=== PATIENT | female | born 1930 | race Caucasian/White ===

== ENCOUNTER 2017-05-30 11:26 | Emergency (ER) | payer MEDICARE, OTHER ==
[~2017-05-30] VITALS: Ht 157.5 cm; Wt 63.0 kg
[~2017-05-30 11:26] MED LIST: ACET-2605 PO; AMLO5TAB4 PO; ESCI10TA PO; IBUP-1096 PO; LOPE2CAP40 PO; LOSA25TA13 PO; MAG30ORA PO; MAGN400O6 PO; METF500T4 PO; PEPTO-BISMOL PO; RISP1TAB27 PO; SITA50TA PO
[2017-05-30] MEDS ORDERED: POLY119P2 PO (11:47)
[2017-05-30] MEDS ORDERED: RISP0.5T20 PO (11:47)
[2017-05-30] MEDS ORDERED: ACET-53 PO (11:47)
[2017-05-30] MEDS ORDERED: MELO-105 PO (11:47)
[2017-05-30] MEDS ORDERED: DEXT118L43 PO (11:47)
[2017-05-30] MEDS ORDERED: BISM262O28 PO (11:47)
[2017-05-30] MEDS ORDERED: NEOM15OI3 TP (11:47)
[2017-05-30] MEDS ORDERED: ASPI81TA31 PO (11:47)
[2017-05-30] MEDS ORDERED: LOSA50TA21 PO (11:48)
--- NOTE | 2017-05-30 12:20 | NUR ---
PT WAS EVALUATED BY DR BAZZI. PT IS IN ROOM #2A.
[2017-05-30 12:39] LABS: BASOPHILS # (AUTO) 0.1 K/uL (0.0-8.0); BASOPHILS % (AUTO) 0.8 % (0.0-2.0); EOSINOPHILS # (AUTO) 0.2 K/uL (0.0-0.7); EOSINOPHILS % (AUTO) 2.3 % (0.0-7.0); HEMATOCRIT 41.6 % (37-47); HEMOGLOBIN 13.9 G/DL (12.0-16.0); LYMPHOCYTES # (AUTO) 2.1 K/UL (0.8-4.8); MEAN CORPUSCULAR HEMOGLOBIN 30.4 UUG (27.0-31.0); MEAN CORPUSCULAR HGB CONC 33 g/dL (32.0-37.0); MEAN CORPUSCULAR VOLUME 91.1 FL (81.0-99.0); MONOCYTES # (AUTO) 0.6 K/UL (0.1-1.30); MONOCYTES % (AUTO) 7.2 % (0.0-11.0); NEUTROPHILS # (AUTO) 5.1 K/UL (1.8-8.9); NEUTROPHILS % (AUTO) 63.7 % (38.5-71.5); PLATELET COUNT (AUTO) 180 K/UL (150-450); RED BLOOD CELL COUNT(AUTO) 4.56 MIL/UL (4.2-5.4); WHITE BLOOD COUNT (AUTO) 8.1 K/UL (4.0-11.2)
[2017-05-30 12:44] LABS: CARBON DIOXIDE 31 mmol/L (21-32); CHLORIDE 105 mmol/L (98-107); CREATININE 0.7 mg/dL (0.6-1.3); GLUCOSE 123 mg/dL (74-106); UREA NITROGEN, BLOOD 13 mg/dL (7-18)
[2017-05-30 12:55] LABS: ALANINE AMINOTRANSFERASE 19 U/L (14-59); ALKALINE PHOSPHATASE 62 U/L (50-136); ASPARTATE AMINOTRANSFERASE 29 U/L (15-37); BILIRUBIN,DIRECT 0.2 mg/dL (0.0-0.2); BILIRUBIN,TOTAL 0.6 mg/dL (0.2-1.0); TOTAL PROTEIN, SERUM 7.3 g/dL (6.4-8.2)
[2017-05-30 13:12] LABS: *BILIRUBIN,URIN NEGATIVE (NEGATIVE); *BLOOD, URINE NEGATIVE (NEGATIVE); *CLARITY,URINE CLEAR (CLEAR); *COLOR,URINE YELLOW (YELLOW); *KETONES,URINE NEGATIVE (NEGATIVE); *PROTEIN,URINE NEGATIVE (NEGATIVE); LEUKOCYTE ESTERASE ,URINE TRACE (NEGATIVE); NITRITE, URINE NEGATIVE (NEGATIVE); PH,URINE 8.5 (5.0-8.0); UGLUCOSE NEGATIVE (NEGATIVE)
--- NOTE | 2017-05-30 13:25 | NUR ---
PT WAS D/C TO HOME. D/C INSTRUCTIONS GIVEN TO THE PT AND TO HER CUBAHTER. NO S/S OF DISTRESS AT THIS TIME.
[2017-05-30 13:26] VITALS: BP 142/92
[2017-05-30 13:30] LABS: BACTERIA,URINE FEW /HPF (NONE SEEN); RBC,URINE 0-3 /HPF (0-3); SQUAMOUS EPITHELIAL CELL,UR FEW /HPF (NONE SEEN)
== END 2017-05-30 13:29 | disposition home or self-care (01) ==
LOC: ER 11:26
DX: I10 Essential (primary) hypertension (principal); Z79.82 Long term (current) use of aspirin; E11.9 Type 2 diabetes mellitus without complications; E78.00 Pure hypercholesterolemia, unspecified
CPT/HCPCS: 36415; 70030-TC; 70450; 71010; 84443; 85025; 85730; 87040; 87086; 93005; A4663

== ENCOUNTER 2017-06-10 17:55 | Emergency (ER) | payer MEDICARE, OTHER ==
[~2017-06-10] VITALS: Ht 154.9 cm; Wt 64.4 kg
[~2017-06-10 17:55] MED LIST changes: +ACET-53 PO; -AMLO5TAB4 PO; +ASPI81TA31 PO; +BISM262O28 PO; +DEXT118L43 PO; -IBUP-1096 PO; -LOSA25TA13 PO; +LOSA50TA21 PO; +MELO-105 PO; -METF500T4 PO; +NEOM15OI3 TP; +POLY119P2 PO; +RISP0.5T20 PO; -RISP1TAB27 PO
--- NOTE | 2017-06-10 18:46 | NUR ---
PT IS IN ROOM #1A. DR RUBIN EVALUATED THE PT.
[2017-06-10 19:34] LABS: BASOPHILS # (AUTO) 0.1 K/uL (0.0-8.0); BASOPHILS % (AUTO) 0.9 % (0.0-2.0); EOSINOPHILS # (AUTO) 0.1 K/uL (0.0-0.7); EOSINOPHILS % (AUTO) 1.5 % (0.0-7.0); HEMATOCRIT 39.4 % (37-47); HEMOGLOBIN 13.1 G/DL (12.0-16.0); LYMPHOCYTES # (AUTO) 2.2 K/UL (0.8-4.8); LYMPHOCYTES % (AUTO) 25.7 % (20.5-51.5); MEAN CORPUSCULAR HEMOGLOBIN 30.6 UUG (27.0-31.0); MEAN CORPUSCULAR HGB CONC 33 g/dL (32.0-37.0); MEAN CORPUSCULAR VOLUME 91.6 FL (81.0-99.0); MONOCYTES # (AUTO) 0.8 K/UL (0.1-1.30); MONOCYTES % (AUTO) 9.7 % (0.0-11.0); NEUTROPHILS # (AUTO) 5.5 K/UL (1.8-8.9); NEUTROPHILS % (AUTO) 62.2 % (38.5-71.5); PLATELET COUNT (AUTO) 172 K/UL (150-450); WHITE BLOOD COUNT (AUTO) 8.7 K/UL (4.0-11.2)
[2017-06-10 19:49] LABS: CARBON DIOXIDE 29 mmol/L (21-32); CHLORIDE 105 mmol/L (98-107); CREATININE 0.8 mg/dL (0.6-1.3); GLUCOSE 81 mg/dL (74-106); POTASSIUM 4.5 mmol/L (3.5-5.1); UREA NITROGEN, BLOOD 20 mg/dL (7-18)
--- NOTE | 2017-06-10 19:49 | NUR ---
VERBAL ORDER RECEIVED FROM NESS ROBERTS TO STRAIGHT CATH TO COLLECT URINE, PATIENT TOLERATED PROCEDURE WELL.
[2017-06-10 20:02] LABS: ALANINE AMINOTRANSFERASE 19 U/L (14-59); ALKALINE PHOSPHATASE 46 U/L (50-136); ASPARTATE AMINOTRANSFERASE 28 U/L (15-37); BILIRUBIN,DIRECT 0.1 mg/dL (0.0-0.2); BILIRUBIN,TOTAL 0.6 mg/dL (0.2-1.0); LIPASE 213 U/L (73-393); TOTAL PROTEIN, SERUM 6.7 g/dL (6.4-8.2)
[2017-06-10 20:39] LABS: *BILIRUBIN,URIN NEGATIVE (NEGATIVE); *BLOOD, URINE NEGATIVE (NEGATIVE); *CLARITY,URINE CLEAR (CLEAR); *COLOR,URINE YELLOW (YELLOW); *KETONES,URINE NEGATIVE (NEGATIVE); *PROTEIN,URINE NEGATIVE (NEGATIVE); LEUKOCYTE ESTERASE ,URINE TRACE (NEGATIVE); NITRITE, URINE NEGATIVE (NEGATIVE); UGLUCOSE NEGATIVE (NEGATIVE)
[2017-06-10 20:50] LABS: BACTERIA,URINE NONE SEEN /HPF (NONE SEEN); RBC,URINE 0-3 /HPF (0-3); SQUAMOUS EPITHELIAL CELL,UR FEW /HPF (NONE SEEN); WBC,URINE 0-3 /HPF (0-3)
[2017-06-10 21:40] VITALS: BP 143/75
--- NOTE | 2017-06-10 21:41 | NUR ---
Patient discharged to home in stable conditon. Written and verbal after care instructions given. Patient verbalizes understanding of instructions.
== END 2017-06-10 21:41 | disposition home or self-care (01) ==
LOC: ER 17:55
DX: R06.02 Shortness of breath (principal); R79.89 Other specified abnormal findings of blood chemistry; I10 Essential (primary) hypertension; E78.00 Pure hypercholesterolemia, unspecified; E11.9 Type 2 diabetes mellitus without complications; F32.9 Major depressive disorder, single episode, unspecified; R41.82 Altered mental status, unspecified; I70.0 Atherosclerosis of aorta; Z79.82 Long term (current) use of aspirin
CPT/HCPCS: 36415; 70450; 71010; 80048; 80076; 81001; 83605; 83690; 83880; 84484; 85025; 87040 ×2; 87086; 93005; 99285; A4663; C1758; 70030-TC

== ENCOUNTER 2017-11-10 18:51 | Inpatient (IN) | payer MEDICARE, OTHER ==
[~2017-11-10] VITALS: Ht 162.6 cm; Wt 67.6 kg
[2017-11-10] MEDS ORDERED: VANCOMYCIN IV 1,000 MG in IV DEXTROSE 5% 250 ML IV ONE (20:30)
[2017-11-10] MEDS ORDERED: PIPERACILLIN SODIUM/TAZOBACTAM 3.375 G in IV DEXTROSE 5% 50 ML IV ONE (20:30)
[2017-11-10] MEDS ORDERED: IV NORMAL SALINE 1000 ML BAG IV ONE ×2 (20:30→23:30)
[2017-11-10 21:11] LABS: BASOPHILS % (AUTO) 0.2 % (0.0-2.0); HEMATOCRIT 40.1 % (31.2-41.9); HEMOGLOBIN 13.6 g/dL (10.9-14.3); LYMPHOCYTES # (AUTO) 1.2 K/uL (20.0-40.0); LYMPHOCYTES % (AUTO) 12.3 % (20.5-51.5); MEAN CORPUSCULAR HEMOGLOBIN 30.5 uug (24.7-32.8); MEAN CORPUSCULAR HGB CONC 34 g/dL (32.3-35.6); MEAN CORPUSCULAR VOLUME 89.7 fL (75.5-95.3); MONOCYTES % (AUTO) 10.4 % (0.0-11.0); NEUTROPHILS # (AUTO) 7.8 K/uL (1.8-8.9); NEUTROPHILS % (AUTO) 77.1 % (38.5-71.5); PLATELET COUNT (AUTO) 119 K/uL (179-408); RED BLOOD CELL COUNT(AUTO) 4.47 MIL/uL (3.63-4.92); WHITE BLOOD COUNT (AUTO) 10.1 K/uL (3.8-11.8)
[2017-11-10 21:25] LABS: CARBON DIOXIDE 24 mmol/L (21-32); CHLORIDE 104 mmol/L (98-107); CREATININE 1.2 mg/dL (0.6-1.3); GLUCOSE 174 mg/dL (74-106); POTASSIUM 3.8 mmol/L (3.5-5.1); UREA NITROGEN, BLOOD 17 mg/dL (7-18)
[2017-11-10] MEDS ORDERED: PIPERACILLIN/TAZOBACTAM/D5W 50 ML IV ONE (21:26)
[2017-11-10 21:38] LABS: ALANINE AMINOTRANSFERASE 35 U/L (14-59); ALKALINE PHOSPHATASE 45 U/L (50-136); ASPARTATE AMINOTRANSFERASE 125 U/L (15-37); BILIRUBIN,DIRECT 0.1 mg/dL (0.0-0.2); BILIRUBIN,TOTAL 0.4 mg/dL (0.2-1.0); TOTAL PROTEIN, SERUM 6.4 g/dL (6.4-8.2)
[2017-11-10] MEDS ORDERED: ASPIRIN 325 MG TABLET PO ONE (21:45)
[2017-11-10] MEDS ORDERED: VANCOMYCIN IV 200 ML ONE (21:52)
[2017-11-10] MEDS ORDERED: MAG-106 PO (22:31)
[2017-11-10] MEDS ORDERED: RISP1TAB27 PO (22:31)
[2017-11-10] MEDS ORDERED: AMOX1TAB49 PO (22:31)
[2017-11-10] MEDS ORDERED: [UNRECOGNIZED DRUG - CODE] PO (22:31)
[2017-11-10] MEDS ORDERED: LOPE2TAB57 PO (22:31)
[2017-11-10] MEDS ORDERED: LOSA100T15 PO (22:31)
[2017-11-10] MEDS ORDERED: CLON0.3P TD (22:31)
[2017-11-10] MEDS ORDERED: LIDO30AD10 TD (22:31)
--- NOTE | 2017-11-10 22:35 | NUR ---
pt in bed, returned from CT with no acute distress. family at bedside.
[2017-11-10] MEDS ORDERED: ASPIRIN 325 MG TABLET ONE (22:53)
--- NOTE | 2017-11-10 23:42 | NUR ---
pATIENT IN BED, NO ACUTE DISTRESS NOTED. ALL PATIENT NEEDS ATTENDED AND MET. CALL LIGHT IS WITHIN REACH
[2017-11-11] VITALS (13 sets, daily range): BP systolic 88–156; BP diastolic 54–76
[2017-11-11] MEDS ORDERED: OSELTAMIVIR PHOSPHATE 75 MG CAPSULE PO ONE (00:15)
--- NOTE | 2017-11-11 00:22 | NUR ---
pt w/c to bathroom with daughter and returned to bed. no acute distress.
--- NOTE | 2017-11-11 00:25 | NUR ---
[facility] paged per MASHA SMITH instructions.
--- NOTE | 2017-11-11 01:05 | NUR ---
2nd call placed to [facility] for call back.
[2017-11-11] MEDS ORDERED: OSELTAMIVIR PHOSPHATE 75 MG CAPSULE ONE (01:13)
--- NOTE | 2017-11-11 01:30 | NUR ---
called CCU and report given to Ibis HANNA
--- NOTE | 2017-11-11 02:20 | NUR ---
ADMITTED FROM ER VIA GURNEY, VERBALLY RESPONSIVE & FOLLOWS TO COMMAND. HEP LOCK INTACT & PATENT ON L WRIST. BP STABLE, AFEBRILE. ON RM AIR W/ O2 SAT OF 98%. NOT IN ANY DISTRESS.
[2017-11-11] MEDS ORDERED: ESCITALOPRAM OXALATE 10 MG TABLET PO SCH ×2 (03:00→18:00)
[2017-11-11] MEDS ORDERED: risperiDONE 1 MG TABLET PO SCH (03:00)
[2017-11-11] MEDS ORDERED: risperiDONE 0.25 MG TABLET ONE (03:20)
[2017-11-11] MEDS ORDERED: ESCITALOPRAM OXALATE 10 MG TABLET ONE (03:23)
[2017-11-11 05:43] LABS: BASOPHILS % (AUTO) 0.3 % (0.0-2.0); EOSINOPHILS % (AUTO) 0.1 % (0.0-7.0); HEMATOCRIT 38.6 % (31.2-41.9); LYMPHOCYTES # (AUTO) 1.2 K/uL (20.0-40.0); LYMPHOCYTES % (AUTO) 16.9 % (20.5-51.5); MEAN CORPUSCULAR HEMOGLOBIN 30.1 uug (24.7-32.8); MEAN CORPUSCULAR HGB CONC 34 g/dL (32.3-35.6); MEAN CORPUSCULAR VOLUME 89.8 fL (75.5-95.3); MONOCYTES # (AUTO) 0.9 K/uL (2.0-10.0); MONOCYTES % (AUTO) 11.6 % (0.0-11.0); NEUTROPHILS # (AUTO) 5.2 K/uL (1.8-8.9); NEUTROPHILS % (AUTO) 71.1 % (38.5-71.5); PLATELET COUNT (AUTO) 109 K/uL (179-408); WHITE BLOOD COUNT (AUTO) 7.3 K/uL (3.8-11.8)
[2017-11-11 05:54] LABS: CARBON DIOXIDE 23 mmol/L (21-32); CHLORIDE 109 mmol/L (98-107); CREATININE 0.8 mg/dL (0.6-1.3); GLUCOSE 132 mg/dL (74-106); MAGNESIUM 2.1 mg/dL (1.8-2.4); PHOSPHOROUS 3.2 mg/dL (2.5-4.9); POTASSIUM 3.3 mmol/L (3.5-5.1); UREA NITROGEN, BLOOD 16 mg/dL (7-18)
--- NOTE | 2017-11-11 06:00 | NUR ---
SLEPT WELL. AFEBRILE. NOT IN ANY DISTRESS.
[2017-11-11] MEDS: PIPERACILLIN/TAZOBACTAM/D5W 3.375 G in PREMIXED 1 EACH IV SCH ×3 (06:02→21:25)
[2017-11-11] MEDS ORDERED: PIPERACILLIN/TAZOBACTAM/D5W 50 ML IV ONE (06:09)
--- NOTE | 2017-11-11 13:20 | NUR ---
Dr. Hanna in the unit to examine patient; full report given. Orders to down grade patient to telemetry received. also informed per pharmacy on the phone at this moment to reconcile pt's medications.
[2017-11-11] MEDS ORDERED: MAGNESIUM HYDROXIDE 30 ML LIQUID UDC PO PRN (13:45)
[2017-11-11] MEDS ORDERED: ACETAMINOPHEN ES 500 MG TABLET PO PRN (13:45)
[2017-11-11] MEDS: NEOMY/BACITRAC/POLYMI OINT 28.35 GM TUBE TP SCH (13:45)
[2017-11-11] MEDS ORDERED: ENOXAPARIN SODIUM 100 MG/ML DISP.SYRIN SQ SCH (13:45)
[2017-11-11] MEDS ORDERED: BISMUTH SUBSALICYLATE 262 MG/15 ML UDC PO PRN (13:45)
[2017-11-11] MEDS ORDERED: MAG HYDROX/AL HYDROX/SIMETH 30 ML LIQUID UDC PO PRN (13:45)
[2017-11-11] MEDS ORDERED: POLYETHYLENE GLYCOL 3350 238 GM POWDER PO SCH (13:45)
[2017-11-11] MEDS: ENOXAPARIN SODIUM 60 MG/0.6 ML DISP.SYRIN SQ SCH (15:15)
--- NOTE | 2017-11-11 15:30 | NUR ---
Telephone report given to raul Patrick.
[2017-11-11] MEDS ORDERED: POTASSIUM CHLORIDE 20 MEQ TAB.PRT.SR PO ONE (15:45)
--- NOTE | 2017-11-11 15:58 | NUR ---
At this time during transfer of pt. to room 208 Dr. Parnell in the unit to examine patient. updated pt's daughter of her current condition.
[2017-11-11] MEDS: AZITHROMYCIN IV 500 MG in IV DEXTROSE 5% 250 ML IV SCH (16:00)
--- NOTE | 2017-11-11 16:00 | NUR ---
At this time patient transfer to room 208 via bed, vitals stable.
--- NOTE | 2017-11-11 16:05 | NUR ---
RECEIVED PATIENT FROM CCU 86 YEARS OLD FEMALE BY BED TO ROOM 228 WITH DX OF SEPSIS AND HYPOTENSION PATIENT IS ALERT OBEYS COMMAND SEEMS COMFORTABLE ON ROOM AIR WITH NO SHORTNESS OF BREATH BUT BREATH SOUNDS WITH RHONCHI WITH SOME COUGHING EPISODES NOTED.MULTIPLE ABRASION AND BRUISES NOTED FROM PREVIOUS FALLS PATIENT IS ON RESPIRATORY ISOLATION AND PRECAUTION DUE TO POSITIVE INFLUENZA B.TELEMETRY IS SR-SB AT TIMES WITH NO ECTOPY HEPLOCK LEFT WRIST PATENT MADE COMFORTABLE AND WILL CONTINUE TO OBSERVE.
[2017-11-11] MEDS: CARVEDILOL 3.125 MG TABLET PO SCH (17:12)
[2017-11-11] MEDS: risperiDONE 1 MG TABLET PO SCH (17:57)
[2017-11-11] MEDS: ESCITALOPRAM OXALATE 10 MG TABLET PO SCH (17:57)
--- NOTE | 2017-11-11 18:00 | NUR ---
POTASSIUM LEVEL IS 3.3 ORDER TO GIVE POTASSIUM RECEIVED AND GIVEN.REMAIN ON IV ANTIBIOTICS ORDERED WITH NO ADVERSE OR ALLERGIC REACTIONS AT THIS TIME.PATIENTS DAUGHTER BROUGHT HER SOME SOUP AND ESTONIAN NOODLES AND SHE TOLERATED WELL.WILL CONTINUE TO OBSERVE.
[2017-11-11] MEDS: ATORVASTATIN 20 MG TABLET PO SCH (21:25)
[2017-11-11] MEDS: ACETAMINOPHEN ES 500 MG TABLET PO PRN (21:31)
[2017-11-12 00:18] VITALS: BP 125/77
[2017-11-12] MEDS: ENOXAPARIN SODIUM 60 MG/0.6 ML DISP.SYRIN SQ SCH ×2 (01:40→13:06)
[2017-11-12] MEDS ORDERED: ENOXAPARIN SODIUM 80 MG/0.8 ML DISP.SYRIN SQ ONE (01:56)
--- NOTE | 2017-11-12 02:00 | NUR ---
NOTE TO PHARMACY: TOOK LOVENOX 80 mg; FOR, PYXIS OUT OF LOVENOX 60 MG DOSE. CHARTED ELSEWHERE IN eMar.
[2017-11-12 04:00] VITALS: BP 153/78
[2017-11-12] MEDS: PIPERACILLIN/TAZOBACTAM/D5W 3.375 G in PREMIXED 1 EACH IV SCH ×3 (05:42→22:51)
[2017-11-12 06:16] LABS: BASOPHILS % (AUTO) 0.5 % (0.0-2.0); EOSINOPHILS % (AUTO) 0.6 % (0.0-7.0); HEMATOCRIT 37.3 % (31.2-41.9); HEMOGLOBIN 12.7 g/dL (10.9-14.3); LYMPHOCYTES # (AUTO) 1.6 K/uL (20.0-40.0); LYMPHOCYTES % (AUTO) 29.4 % (20.5-51.5); MEAN CORPUSCULAR HEMOGLOBIN 30.4 uug (24.7-32.8); MEAN CORPUSCULAR HGB CONC 34 g/dL (32.3-35.6); MEAN CORPUSCULAR VOLUME 89.2 fL (75.5-95.3); MONOCYTES # (AUTO) 0.7 K/uL (2.0-10.0); MONOCYTES % (AUTO) 11.9 % (0.0-11.0); NEUTROPHILS # (AUTO) 3.2 K/uL (1.8-8.9); NEUTROPHILS % (AUTO) 57.6 % (38.5-71.5); PLATELET COUNT (AUTO) 113 K/uL (179-408); RED BLOOD CELL COUNT(AUTO) 4.18 MIL/uL (3.63-4.92); WHITE BLOOD COUNT (AUTO) 5.6 K/uL (3.8-11.8)
[2017-11-12 06:29] LABS: ALANINE AMINOTRANSFERASE 29 U/L (14-59); ALKALINE PHOSPHATASE 33 U/L (50-136); ASPARTATE AMINOTRANSFERASE 90 U/L (15-37); BILIRUBIN,TOTAL 0.6 mg/dL (0.2-1.0); CARBON DIOXIDE 25 mmol/L (21-32); CHLORIDE 109 mmol/L (98-107); CREATININE 0.8 mg/dL (0.6-1.3); GLUCOSE 130 mg/dL (74-106); MAGNESIUM 2.1 mg/dL (1.8-2.4); PHOSPHOROUS 3.2 mg/dL (2.5-4.9); POTASSIUM 3.4 mmol/L (3.5-5.1); TOTAL PROTEIN, SERUM 5.6 g/dL (6.4-8.2); UREA NITROGEN, BLOOD 13 mg/dL (7-18)
--- NOTE | 2017-11-12 07:59 | NUR ---
PATIENT IS IN BED AWAKE ALERT WITH CONFUSSION AND DISORIENTATION TOTALLY DEPENDENT FOR ALL ADL TURNED AND REPOSITIONED Q2H REMAIN ON ROOM AIR WITH NO SHORTNESS OF BREATH AT THIS TIME.REMAIN ON DROPLET ISOLATION AND PRECAUTION ORDERED OCCASSIONAL COUGH EPISODES NOTED MADE COMFORTABLE.
[2017-11-12] MEDS: CARVEDILOL 3.125 MG TABLET PO SCH ×2 (08:53→17:47)
[2017-11-12] MEDS: ASPIRIN 81 MG TAB.CHEW PO SCH (08:53)
[2017-11-12] MEDS: LIDOCAINE 5% PATCH TD SCH (08:53)
[2017-11-12] MEDS: LINAGLIPTIN 5 MG TABLET PO SCH (08:53)
[2017-11-12] MEDS ORDERED: OSELTAMIVIR PHOSPHATE 75 MG CAPSULE PO SCH (09:00)
[2017-11-12] MEDS ORDERED: SITAGLIPTIN PHOSPHATE 50 MG TABLET PO SCH (09:00)
[2017-11-12] MEDS: NEOMY/BACITRAC/POLYMI OINT 28.35 GM TUBE TP SCH (09:20)
[2017-11-12] MEDS ORDERED: ONDANSETRON 4 MG/2 ML VIAL IV PRN (09:30)
--- NOTE | 2017-11-12 09:42 | NUR ---
DR RIBEIRO HERE TO SEE PATIENT WITH NEW ORDERS AND NOTED
[2017-11-12] MEDS: POTASSIUM CHLORIDE 10 MEQ in IV 1/2NS 1000 ML 1,000 ML IV PRN (09:44)
--- NOTE | 2017-11-12 09:58 | NUR ---
SEEN BY THE PHYSICAL THERPIST AND PATIENT AMBULATED TO THE BATHROOM AND VOIDED AND BACK TO BED HER DAUGHTER IS AT THE BEDSIDE AT THIS TIME.
[2017-11-12] MEDS ORDERED: VANCOMYCIN IV 1 G in PREMIXED 0 EACH IV ONE (10:30)
[2017-11-12 11:20] VITALS: BP 142/72
[2017-11-12] MEDS: OSELTAMIVIR PHOSPHATE 75 MG CAPSULE PO SCH ×2 (11:30→20:04)
--- NOTE | 2017-11-12 13:36 | NUR ---
PATIENT ASSISTED INTO THE BATHROOM AMBULATED HAND HELD AND VOIDED ADEQUATE AMOUNT AND BACK TO BED.IV SITE INFILTERATED REINSERTED TO HER LEFT FOREARM WITH GAUGE 20 ANGIO
[2017-11-12 15:07] VITALS: BP 141/69
[2017-11-12] MEDS: AZITHROMYCIN IV 500 MG in IV DEXTROSE 5% 250 ML IV SCH (15:32)
--- NOTE | 2017-11-12 16:53 | NUR ---
Clinical pharmacy note-Vancomycin dosing per pharmacy S: To start Vancomycin dosing on this patient for sepsis with shock. O: BUN 12 Scr 0.8 WBC 5.6 Temp 98.5 A/P: Patient had 1 gram today at 1129. Will continue Vancomycin 1gram every 22 hrs (second dose tomorrow at 0900) and draw trough by 4th dose(not ordered yet) for expected trough around 15. Will monitor daily.
[2017-11-12] MEDS: ESCITALOPRAM OXALATE 10 MG TABLET PO SCH (17:46)
[2017-11-12] MEDS: risperiDONE 1 MG TABLET PO SCH (17:46)
[2017-11-12] MEDS ORDERED: BISMUTH SUBSALICYLATE 262 MG/15 ML UDC PO PRN (18:00)
--- NOTE | 2017-11-12 18:00 | NUR ---
PATIENT REMAINS ON ANTIBIOTICS ORDERED WITH NO ADVERSE OR ALLERGIC REACTIONS AT THIS TIME MADE COMFORTABLE AND WILL CONTINUE TO OBSERVE.
--- NOTE | 2017-11-12 18:50 | NUR ---
ORDER FROM DR ESCOBAR FOR SPUTUM RECEIVED AND NOTED SPECIMEN CUP PROVIDED TO THE PATIENT AND HER DAUGHTER AND PATIENTS DAUGHTER WAS EDUCATED TTHAT PATIENT SHOULD DEEP COUGH INTO THE SPECIMEN CUP AND SHE EXPRESSED UNDERSTANDING.RESPIRATORY THERAPY WAS NOTIFIED OF ORDER TO INDUCE SPUTUM IF PATIENT IS UNABLE TO PROVIDE SPECIMEN.
[2017-11-12 20:00] VITALS: BP 179/50
[2017-11-12] MEDS: ATORVASTATIN 20 MG TABLET PO SCH (20:03)
[2017-11-12] MEDS: ACETAMINOPHEN ES 500 MG TABLET PO PRN (20:04)
--- NOTE | 2017-11-12 20:30 | NUR ---
Patient in bed awake & alert w/ daughter at bedside. Tele shows sinus rhtyhm sinus cem. Coughing on & off non productively. Instructed patient to collect sputum sample for sputum test. Complaining of lower back discomfort. Noted elevated BP. Tylenol 1000 mg po given for pain & monitored.
[2017-11-12 23:00] VITALS: BP 145/81
--- NOTE | 2017-11-12 23:45 | NUR ---
Assisted to the bathroom, patient voided. Denies pain at this time, re-checked BP itsa 145/81. Sinus cem on the monitor.
--- NOTE | 2017-11-13 | NUR ---
Sputum not available yet. RT attempted to do deep suction but patient refused.
[2017-11-13 00:31] VITALS: BP 167/68
[2017-11-13] MEDS: ENOXAPARIN SODIUM 60 MG/0.6 ML DISP.SYRIN SQ SCH ×2 (02:05→13:04)
[2017-11-13 04:00] VITALS: BP 188/78
[2017-11-13] MEDS: POTASSIUM CHLORIDE 10 MEQ in IV 1/2NS 1000 ML 1,000 ML IV PRN (05:33)
[2017-11-13] MEDS: PIPERACILLIN/TAZOBACTAM/D5W 3.375 G in PREMIXED 1 EACH IV SCH ×3 (05:33→21:08)
[2017-11-13] MEDS: CARVEDILOL 3.125 MG TABLET PO SCH ×2 (05:49→17:22)
--- NOTE | 2017-11-13 06:44 | NUR ---
BP elevated today, early dose of morning Coreg p.o given. Kept comfortable. No acute resp. distress, sinus cem on the monitor.
--- NOTE | 2017-11-13 07:30 | NUR ---
RECEIVED IN BED ASLEEP BUT AROUSES EASILY ON ROOM AIR WITH NO SHORTNESS OF BREATH REMAIN ON IVF ORDERED WITH NO S/S OF INFILTERATION ON SITE.ON DROPLET ISOLATION AND PRECAUTION FOR POSITIVE INFLUENZA SOME COUGH NOTED BUT UNABLE TO EXPECTORATE PER THE NOC RN PATIENT REFUSED TO BR INDUCED FOR THE SPUTUM.WILL CONTINUE TO OBSERVE AND PROVIDE SAFE AND THERAPEUTIC ENVIRONMENT AT ALL TIMES.
[2017-11-13] MEDS: LIDOCAINE 5% PATCH TD SCH (08:39)
[2017-11-13] MEDS: ASPIRIN 81 MG TAB.CHEW PO SCH (08:39)
[2017-11-13] MEDS: LINAGLIPTIN 5 MG TABLET PO SCH (08:39)
[2017-11-13] MEDS: NEOMY/BACITRAC/POLYMI OINT 28.35 GM TUBE TP SCH (08:40)
[2017-11-13] MEDS: OSELTAMIVIR PHOSPHATE 75 MG CAPSULE PO SCH ×2 (08:49→21:08)
[2017-11-13] MEDS: VANCOMYCIN IV 1 G in PREMIXED 0 EACH IV SCH (09:18)
--- NOTE | 2017-11-13 10:30 | NUR ---
ALERT WITH DISORIENTATION REQUIRES REALITY ORIENTATION AND REDIRECTION.REMAIN ON IV ANTIBIOTICS ORDERED WITH NO ADVERSE OR ALLERGIC REACTIONS AT THIS TIME.REMAIN ON DROPLET ISOLATION AND PRECAUTION ORDERED COUGHS AT TIMES DRY UNABLE TO BRING UP PHLEGM.
[2017-11-13 11:25] VITALS: BP 184/69
[2017-11-13] MEDS ORDERED: OSELTAMIVIR PHOSPHATE 75 MG CAPSULE PO SCH (12:00)
--- NOTE | 2017-11-13 13:10 | NUR ---
Clinical pharmacy note-Vancomycin dosing per pharmacy S: To continue Vancomycin dosing on this patient for sepsis with shock. O: BUN 13 (11/12) Scr 0.8 (11/12) WBC 5.6 (11/12) Temp 98.2 A/P: Will continue same dose of Vancomycin 1gram ivpb every 22 hrs. Third dose is due tomorrow at 0700. Plan to draw trough by 4th dose(not ordered yet). Will monitor daily.
[2017-11-13] MEDS ORDERED: CLONIDINE TTS 2 PATCH TD SCH (14:15)
--- NOTE | 2017-11-13 14:15 | NUR ---
PATIENT SEEN BY DR DIEZ WITH TELEMETRY DISCONTINUED PATIENT IS ALERT TO SELF BUT DISORIENTED AT THIS TIME STATED LOOKING FOR HER WALKER AND MONEY.REASSURED HER THAT I WILL CALL HER DAUGHTER TO CHECK ON THESE ITEMS.
[2017-11-13] MEDS: LOSARTAN POTASSIUM 50 MG TABLET PO SCH ×2 (14:28→21:08)
[2017-11-13] MEDS ORDERED: AZITHROMYCIN IV 500 MG in IV DEXTROSE 5% 250 ML IV SCH (16:00)
[2017-11-13 16:31] VITALS: BP 180/85
[2017-11-13] MEDS: hydrALAZINE HCL 25 MG TABLET PO PRN (16:35)
--- NOTE | 2017-11-13 16:35 | NUR ---
BLOOD PRESSURE IS 180/85 MEDICATED WITH HYDRALAZINE ORDERED.CATAPRES TTS 2 WAS APPLIED FOR BLOOD PRESSURE OF 177/67 AT 1530
[2017-11-13] MEDS: risperiDONE 1 MG TABLET PO SCH (17:21)
[2017-11-13] MEDS: ESCITALOPRAM OXALATE 10 MG TABLET PO SCH (17:21)
--- NOTE | 2017-11-13 17:45 | NUR ---
PATIENTS DAUGHTER HERE AND SHE STATED THAT HER WALKER AND PURSE WAS AT THE OTHER FACILITY FOR SAFE KEEPING AND PATIENT STATED OKAY.
--- NOTE | 2017-11-13 18:00 | NUR ---
REMAIN ON ATB ORDERED WITH NO ADVERSE OR ALLERGIC REACTIONS AT THIS TIME.AMBULATORY ASSISTED TO AND FROM THE BATHROOM VOIDING WELL BM NOTED ASSISTED WITH CLEAN UP.MADE COMFORTABLE DAUGHTER AT HER BEDSIDE AND WILL CONTINUE TO OBSERVE.
[2017-11-13 20:00] VITALS: BP 164/71
[2017-11-13] MEDS: LACTOBACILLUS RHAMNOSUS GG 1 EACH CAPSULE PO SCH (21:08)
--- NOTE | 2017-11-13 23:30 | NUR ---
nsg: pt tried to get out of bed. pt witnessed sliding down the floor. unable to get up on her own. pt needed 2 person assistance to get her up fr floor to bed. obtained right knee skin tear that used to be just a bruise. pt stated trying to get out of bed to use the toilet. notified charge nurse, concrete block plant supervisor. will notify MD. all safety measures applied.
[2017-11-13] MEDS: RIVAROXABAN 10 MG TABLET PO SCH (23:39)
--- NOTE | 2017-11-14 00:30 | NUR ---
ALEXG: spoke with Dr. Peace, notified regarding the fall. ordered to keep an eye on the patient and 1:1 sitter.
[2017-11-14] MEDS: POTASSIUM CHLORIDE 10 MEQ in IV 1/2NS 1000 ML 1,000 ML IV PRN ×2 (02:39→22:46)
--- NOTE | 2017-11-14 05:23 | NUR ---
nsg: pt awake but confused. wants to get out of bed again. turned and repositioned. kept clean and dry.
[2017-11-14] MEDS: PIPERACILLIN/TAZOBACTAM/D5W 3.375 G in PREMIXED 1 EACH IV SCH ×3 (05:28→20:59)
[2017-11-14] MEDS: hydrALAZINE HCL 25 MG TABLET PO PRN (05:29)
[2017-11-14 05:39] VITALS: BP 164/83
[2017-11-14] MEDS: VANCOMYCIN IV 1 G in PREMIXED 0 EACH IV SCH (06:19)
[2017-11-14 06:39] LABS: BASOPHILS % (AUTO) 0.2 % (0.0-2.0); EOSINOPHILS % (AUTO) 0.5 % (0.0-7.0); HEMATOCRIT 32.9 % (31.2-41.9); HEMOGLOBIN 11.3 g/dL (10.9-14.3); LYMPHOCYTES # (AUTO) 1.7 K/uL (20.0-40.0); LYMPHOCYTES % (AUTO) 16.5 % (20.5-51.5); MEAN CORPUSCULAR HEMOGLOBIN 30.6 uug (24.7-32.8); MEAN CORPUSCULAR HGB CONC 34 g/dL (32.3-35.6); MEAN CORPUSCULAR VOLUME 88.8 fL (75.5-95.3); MONOCYTES # (AUTO) 0.7 K/uL (2.0-10.0); NEUTROPHILS # (AUTO) 7.9 K/uL (1.8-8.9); NEUTROPHILS % (AUTO) 75.8 % (38.5-71.5); PLATELET COUNT (AUTO) 124 K/uL (179-408); RED BLOOD CELL COUNT(AUTO) 3.71 MIL/uL (3.63-4.92); WHITE BLOOD COUNT (AUTO) 10.4 K/uL (3.8-11.8)
--- NOTE | 2017-11-14 06:45 | NUR ---
NSG: SPOKE WITH DAUGHTER, CHRISTIAN. NOTIFIED REGARDING PATIENT'S FALL.
[2017-11-14 07:02] LABS: ALANINE AMINOTRANSFERASE 34 U/L (14-59); ALKALINE PHOSPHATASE 40 U/L (50-136); ASPARTATE AMINOTRANSFERASE 71 U/L (15-37); BILIRUBIN,TOTAL 0.9 mg/dL (0.2-1.0); CARBON DIOXIDE 24 mmol/L (21-32); CHLORIDE 104 mmol/L (98-107); CREATININE 0.8 mg/dL (0.6-1.3); GLUCOSE 169 mg/dL (74-106); MAGNESIUM 1.7 mg/dL (1.8-2.4); PHOSPHOROUS 2.4 mg/dL (2.5-4.9); POTASSIUM 3.1 mmol/L (3.5-5.1); UREA NITROGEN, BLOOD 7 mg/dL (7-18)
--- NOTE | 2017-11-14 07:25 | NUR ---
RECEIVED PATIENT IN BED AWAKE ALERT DENIES PAIN OR DISCOMFORTS AT THIS TIME.REMAIN ON DROPLET ISOLATION AND PRECAUTIONS ORDERED IVF REMAINS IN PROGRESS ORDERED WITH IV ANTIBIOTICS ORDERED WITH NO ADVERSE OR ALLERGIC REACTIONS AT THIS TIME.S/P FALL SAFTY MEASURES IN PLACE WILL CONTINUE TO OBSERVE.
--- NOTE | 2017-11-14 07:43 | NUR ---
PATIENT REQUESTED TO GET OUT OB BED TO USE THE BATHROOM NOTED THAT SHE WAS INCONTINENT OF STOOL AT THIS TIME PATIENT ASSISTED WITH HAND HELD AND SEATED ON THE TOILET AT THIS TIME.
[2017-11-14 07:45] VITALS: BP 168/92
--- NOTE | 2017-11-14 07:45 | NUR ---
PATIENT IS STILL SITTING ON THE TOILET AND NOTED THAT SHE IS PALE COLD AND CLAMMY NOT RESPONDING TO VERBAL COMMANDS PATIENT UNABLE TO TO WALK NEEDED 3 PERSONS TO LIFT HER UP AND ASSIST INTO BED RAPID RESPONSE CALLED BLOOD SUGAR WAS 204 B/P 168/92 AND HEART RATE IS 83 O2 SAT ON ROOM AIR IS 99% PATIENT PLACED ON 1L FOR COMFORT WITHIN 5 MINS PATIENT IS NOW AWAKE AND TALKING RESPONDING TO COMMANDS DID NOT REMEMBER WHAT HAPPENED.MADE COMFORTABLE AND WILL CONTINUE TO OBSERVE.
--- NOTE | 2017-11-14 07:55 | NUR ---
DR PLEITEZ NOTIED OF THE ABOVE INCIDENT AND HE STATED TO PLACE PATIENT ON TELEMETRY PLACED AND SHE IS SR AT 79 WITH NO ECTOPY AT THIS TIME.
--- NOTE | 2017-11-14 08:15 | NUR ---
PATIENTS DAUGHTER CHRISTIAN IS HERE AND I HAVE INFORMED HER IN DETAILS OF THE HAPPENSTANCES THIS MORNING AND DR PLEITEZ IS ALSO HERE AND STATED WILL TALK TO THE PATIENTS DAUGHTER.
[2017-11-14] MEDS: LINAGLIPTIN 5 MG TABLET PO SCH (09:25)
[2017-11-14] MEDS: LACTOBACILLUS RHAMNOSUS GG 1 EACH CAPSULE PO SCH ×2 (09:25→20:07)
[2017-11-14] MEDS: LOSARTAN POTASSIUM 50 MG TABLET PO SCH ×3 (09:26→20:17)
[2017-11-14] MEDS: CARVEDILOL 3.125 MG TABLET PO SCH ×2 (09:26→17:19)
[2017-11-14] MEDS: OSELTAMIVIR PHOSPHATE 75 MG CAPSULE PO SCH ×2 (09:26→20:07)
[2017-11-14] MEDS: LIDOCAINE 5% PATCH TD SCH (09:27)
[2017-11-14] MEDS: NEOMY/BACITRAC/POLYMI OINT 28.35 GM TUBE TP SCH (09:27)
--- NOTE | 2017-11-14 09:35 | NUR ---
PATIENT STATED FEELS VERY TIRED CT HEAD DONE ORDERED AND US DAYANA IS IN PROGRESS AT THIS TIME.
[2017-11-14 12:02] VITALS: BP 125/65
--- NOTE | 2017-11-14 14:57 | NUR ---
Clinical pharmacy note-Vancomycin dosing per pharmacy S: To continue Vancomycin dosing on this patient for sepsis with shock. O: BUN 7 Scr 0.8 WBC 10.4 Temp 98.7 A/P: Will continue same dose of Vancomycin 1gram ivpb every 22 hrs. Third dose today at 0700. Ordered trough fortomorrow at 0430. RN endorsed to hold dose if level >20. Will check in am and adjust regimen as needed. Will monitor daily.
--- NOTE | 2017-11-14 15:22 | NUR ---
PATIENT IS SLEEPING A LOT BUT OPENS EYES AND RESPONDS VERBALLY WHEN ASKED REFUSING TO EAT HER FOOD BUT DRANK AND TOLERATED JUICES AND WATER.WILL CONTINUE TO OBSERVE.
[2017-11-14 16:05] VITALS: BP 118/67
[2017-11-14] MEDS ORDERED: POTASSIUM CHLORIDE 20 MEQ TAB.PRT.SR PO ONE (16:15)
[2017-11-14] MEDS ORDERED: NEUTRA PHOS PACKET PO ONE (16:30)
[2017-11-14] MEDS: MAGNESIUM SULFATE/D5W 100 ML IV SCH ×2 (16:37→17:36)
--- NOTE | 2017-11-14 16:44 | NUR ---
PHOS LEVEL IS 2.4 MAG 1.7 AND POTASSIUM 3.1 WITH NEW ORDERS TO REPLACE AND NOTED.
[2017-11-14] MEDS: risperiDONE 1 MG TABLET PO SCH (17:17)
[2017-11-14] MEDS: ESCITALOPRAM OXALATE 10 MG TABLET PO SCH (17:17)
[2017-11-14] MEDS: RIVAROXABAN 10 MG TABLET PO SCH (17:18)
--- NOTE | 2017-11-14 17:54 | NUR ---
IN BED AWAKE ALERT AND AWARE SHE IS BEING FED BY HER DAUGHTER AT THIS TIME DR ESCOBAR HERE WITH NO NEW ORDERS.
[2017-11-14 20:00] VITALS: BP 106/46
[2017-11-14] MEDS: ACETAMINOPHEN ES 500 MG TABLET PO PRN (20:07)
--- NOTE | 2017-11-14 20:18 | NUR ---
Received patient sleeping in bed, no SOB no signs of distress, 1:1 sitter in room for patient's safety. BP medication held for now due to low BP 110/51, Tele shows sinus rhythm w/ HR 74 bpm. Sponge bath performed, linen change done. Will continue to monitor.
--- NOTE | 2017-11-15 00:30 | NUR ---
Awake but confused tried to get out of bed, 1:1 sitter at bedside for patient's safety. Noted wet diaper, incontinence care provided. BP remains low 98/53 Sinus rhythm on the monitor. Will continue to monitor.
[2017-11-15 00:35] VITALS: BP 96/46
[2017-11-15 05:17] LABS: CARBON DIOXIDE 26 mmol/L (21-32); CHLORIDE 106 mmol/L (98-107); CREATININE 0.9 mg/dL (0.6-1.3); GLUCOSE 156 mg/dL (74-106); PHOSPHOROUS 3.4 mg/dL (2.5-4.9); POTASSIUM 3.6 mmol/L (3.5-5.1); UREA NITROGEN, BLOOD 9 mg/dL (7-18)
[2017-11-15] MEDS: PIPERACILLIN/TAZOBACTAM/D5W 3.375 G in PREMIXED 1 EACH IV SCH ×3 (05:18→21:00)
[2017-11-15] MEDS: VANCOMYCIN IV 1 G in PREMIXED 0 EACH IV SCH ×2 (06:00→23:57)
[2017-11-15 08:07] VITALS: BP 116/62
[2017-11-15] MEDS: OSELTAMIVIR PHOSPHATE 75 MG CAPSULE PO SCH ×2 (08:34→21:36)
[2017-11-15] MEDS: CARVEDILOL 3.125 MG TABLET PO SCH ×2 (08:35→18:08)
[2017-11-15] MEDS: LACTOBACILLUS RHAMNOSUS GG 1 EACH CAPSULE PO SCH ×2 (08:36→21:36)
[2017-11-15] MEDS: LINAGLIPTIN 5 MG TABLET PO SCH (08:37)
[2017-11-15] MEDS: LIDOCAINE 5% PATCH TD SCH (08:37)
[2017-11-15] MEDS: NEOMY/BACITRAC/POLYMI OINT 28.35 GM TUBE TP SCH (08:40)
[2017-11-15] MEDS: LOSARTAN POTASSIUM 50 MG TABLET PO SCH ×2 (09:00→20:54)
--- NOTE | 2017-11-15 09:35 | NUR ---
0900 BP med not administered due to low blood pressure. Daughter at bedside.
--- NOTE | 2017-11-15 14:17 | NUR ---
Clinical pharmacy note-Vancomycin dosing per pharmacy S: To continue Vancomycin dosing on this patient for sepsis with shock. O: BUN 9 Scr 0.9 WBC 10.4 Temp 98 Vancomycin trough today at 0430 11. A/P: Will change dose of Vancomycin 1gram ivpb to every 18 hrs. Second dose 11/16-. Will order trough by 4th dose (not ordered yet) for expected trough around 15. Will monitor daily.
[2017-11-15] MEDS: POTASSIUM CHLORIDE 10 MEQ in IV 1/2NS 1000 ML 1,000 ML IV PRN (15:55)
--- NOTE | 2017-11-15 18:00 | NUR ---
Patient alert, in no distress, slept most of the day intermittently, easily arousable, daughter at bedside. 1:1 sitter provided for safety. Sputum specimen attempted made but unsuccessful, will endorse to oncoming shift.
[2017-11-15 18:03] VITALS: BP 114/48
[2017-11-15] MEDS: RIVAROXABAN 10 MG TABLET PO SCH (18:06)
[2017-11-15] MEDS: ESCITALOPRAM OXALATE 10 MG TABLET PO SCH (18:07)
[2017-11-15] MEDS: risperiDONE 1 MG TABLET PO SCH (18:07)
[2017-11-15 20:00] VITALS: BP 91/41
--- NOTE | 2017-11-15 21:08 | NUR ---
Report received at bedside from off-going day shift RN, initial assessments completed. Pts' daughter Elizabeth at bedside, updated on POC. Pt is sleeping quietly, awakens easily to voice. HOB up 30 degrees, respirations are even, unlabored on 2 liters nasal cannula, no cough noted, no use of accessory muscles. Bilateral breath sounds diminished in bases. Noted light purple discoloration with small hematoma to pts' right forehead, right cheek, right knee and an abrasion with 4 x 4 to left knee with a small amt of dried blood on dressing. All pressure points floated off of mattress. Pt denies any pain at current time. Bed is in low position, bed exit alarm is activated, lighting adjusted for pt safety, call light within reach, advised pt and daughter to call before pt gets up and reviewed fall precautions. Day time sitter is at bedside also. Monitoring pt for physiologic changes and safety. Per charge nurse, moved pt via bed from Room 228 to room 225. Pts' daughter at bedside aware of room change. Pt tolerated well. Continues on droplet precautions.
[2017-11-15] MEDS ORDERED: TEMAZEPAM 7.5 MG CAPSULE ONE (22:16)
[2017-11-16] VITALS: BP 94/41
--- NOTE | 2017-11-16 00:29 | NUR ---
Report given to JACQUES Jang who is assuming care of pt. Pt resting quietly, no acute changes in ongoing pt assessment.
--- NOTE | 2017-11-16 00:30 | NUR ---
RECEIVED PATIENT SLEEPING, EASILY AROUSES,1:1 SITTER AT BEDSIDE FOR SAFETY PRECAUTIONS,ON O2 3L/M VIA N/C O2 SAT 99%,NO RESPIRATORY DISTRESS NOTED.
[2017-11-16 04:05] VITALS: BP 105/43
[2017-11-16] MEDS: PIPERACILLIN/TAZOBACTAM/D5W 3.375 G in PREMIXED 1 EACH IV SCH (06:10)
[2017-11-16 08:00] VITALS: BP 124/54
[2017-11-16] MEDS: LOSARTAN POTASSIUM 50 MG TABLET PO SCH ×2 (08:23→20:18)
[2017-11-16] MEDS: LACTOBACILLUS RHAMNOSUS GG 1 EACH CAPSULE PO SCH ×2 (08:24→20:17)
[2017-11-16] MEDS: LIDOCAINE 5% PATCH TD SCH (08:24)
[2017-11-16] MEDS: CARVEDILOL 3.125 MG TABLET PO SCH ×2 (08:24→17:34)
[2017-11-16] MEDS: LINAGLIPTIN 5 MG TABLET PO SCH (08:26)
[2017-11-16] MEDS: NEOMY/BACITRAC/POLYMI OINT 28.35 GM TUBE TP SCH (08:33)
[2017-11-16] MEDS: OSELTAMIVIR PHOSPHATE 75 MG CAPSULE PO SCH ×2 (08:34→20:17)
--- NOTE | 2017-11-16 08:56 | NUR ---
Clinical pharmacy note-Vancomycin dosing per pharmacy S: To continue Vancomycin dosing on this patient for sepsis with shock. O: BUN 9 (11/15) Scr 0.9 (11/15) WBC 10.4 (11/15) Temp 98.5 A/P: Will continue new regimen of Vancomycin 1gram ivpb to every 18 hrs. Third dose tonight at 1800. Will order trough by 4th dose (due tomorrow at 1130). Will check level in am and adjust as needed. Expected trough around 15. Will monitor daily.
[2017-11-16 09:49] LABS: BASOPHILS % (AUTO) 0.3 % (0.0-2.0); EOSINOPHILS # (AUTO) 0.1 K/uL (0.0-0.7); EOSINOPHILS % (AUTO) 0.9 % (0.0-7.0); HEMATOCRIT 22.4 % (31.2-41.9); HEMOGLOBIN 7.7 g/dL (10.9-14.3); LYMPHOCYTES # (AUTO) 1.7 K/uL (20.0-40.0); LYMPHOCYTES % (AUTO) 13.8 % (20.5-51.5); MEAN CORPUSCULAR HGB CONC 34 g/dL (32.3-35.6); MEAN CORPUSCULAR VOLUME 90.5 fL (75.5-95.3); MONOCYTES # (AUTO) 0.9 K/uL (2.0-10.0); MONOCYTES % (AUTO) 7.7 % (0.0-11.0); NEUTROPHILS # (AUTO) 9.4 K/uL (1.8-8.9); NEUTROPHILS % (AUTO) 77.3 % (38.5-71.5); PLATELET COUNT (AUTO) 181 K/uL (179-408); WHITE BLOOD COUNT (AUTO) 12.2 K/uL (3.8-11.8)
[2017-11-16 09:53] LABS: RED BLOOD CELL COUNT(AUTO) 2.47 MIL/uL (3.63-4.92)
[2017-11-16 10:04] LABS: ALANINE AMINOTRANSFERASE 23 U/L (14-59); ALKALINE PHOSPHATASE 34 U/L (50-136); ASPARTATE AMINOTRANSFERASE 33 U/L (15-37); BILIRUBIN,TOTAL 0.9 mg/dL (0.2-1.0); CARBON DIOXIDE 25 mmol/L (21-32); CHLORIDE 106 mmol/L (98-107); GLUCOSE 209 mg/dL (74-106); MAGNESIUM 2.1 mg/dL (1.8-2.4); PHOSPHOROUS 2.9 mg/dL (2.5-4.9); POTASSIUM 3.6 mmol/L (3.5-5.1); TOTAL PROTEIN, SERUM 5.2 g/dL (6.4-8.2); UREA NITROGEN, BLOOD 9 mg/dL (7-18)
[2017-11-16 16:00] VITALS: BP 114/69
[2017-11-16] MEDS: RIVAROXABAN 10 MG TABLET PO SCH (17:35)
[2017-11-16] MEDS: ESCITALOPRAM OXALATE 10 MG TABLET PO SCH (17:36)
[2017-11-16] MEDS: risperiDONE 1 MG TABLET PO SCH (17:37)
[2017-11-16] MEDS: VANCOMYCIN IV 1 G in PREMIXED 0 EACH IV SCH (17:39)
[2017-11-16 19:00] VITALS: BP 139/58
--- NOTE | 2017-11-16 19:30 | NUR ---
RECEIVED IN BED AWAKE. IN NO ACUTE SIGNS OF DISTRESS. FAMILY AT BEDSIDE. EXPLAINED PLAN OF CARE TO FAMILY. SAFETY MEASURES RENDERED.
--- NOTE | 2017-11-17 02:09 | NUR ---
HANDS OFF REPORT TO JACQUES TIAN
--- NOTE | 2017-11-17 02:10 | NUR ---
RECEIVED PT ASLEEP ON BED. PT IV IN SALINE LOCK. SITTER ON BEDSIDE. BED ALARM ON AND IN LOW POSITION.
[2017-11-17 04:00] VITALS: BP 134/62
--- NOTE | 2017-11-17 06:46 | NUR ---
PT SLEPT T/O THE SHIFT. SHOWS NO SIGNS OF DISTRESS. VITAL SIGNS WITHIN NORMAL LIMIT. SAFETY AND COMFORT PROVIDED.
[2017-11-17 08:00] VITALS: BP 123/57
[2017-11-17] MEDS: LINAGLIPTIN 5 MG TABLET PO SCH (09:00)
[2017-11-17] MEDS: NEOMY/BACITRAC/POLYMI OINT 28.35 GM TUBE TP SCH (09:00)
[2017-11-17] MEDS: LACTOBACILLUS RHAMNOSUS GG 1 EACH CAPSULE PO SCH ×2 (09:57→20:50)
[2017-11-17] MEDS: LIDOCAINE 5% PATCH TD SCH (09:57)
[2017-11-17] MEDS: OSELTAMIVIR PHOSPHATE 75 MG CAPSULE PO SCH (09:57)
[2017-11-17] MEDS: CARVEDILOL 3.125 MG TABLET PO SCH ×2 (10:21→17:45)
[2017-11-17] MEDS: LOSARTAN POTASSIUM 50 MG TABLET PO SCH ×2 (10:22→20:51)
[2017-11-17 10:25] VITALS: BP 154/66
[2017-11-17] MEDS: ESCITALOPRAM OXALATE 10 MG TABLET PO SCH (17:45)
[2017-11-17] MEDS: risperiDONE 1 MG TABLET PO SCH (17:46)
[2017-11-17] MEDS: RIVAROXABAN 10 MG TABLET PO SCH (18:13)
[2017-11-17 19:00] VITALS: BP 150/68
--- NOTE | 2017-11-17 19:30 | NUR ---
RECEIVED PT AWAKE ON BED WITH DAUGHTER ON BEDSIDE. PT ATE 50% OF HER FOOD. DAUGHTER AND PT IS AWARE THAT SHE WILL BE DISCHARGE TOMORROW. PT IS ON HEPLOCK. PT IS COUGHING. BED IN LOW POSITION. CALL LIGHT WITHIN REACH. WILL CONTINUE TO MONITOR.
[2017-11-17] MEDS ORDERED: ACETAMINOPHEN 325 MG TABLET PO PRN (22:45)
[2017-11-18] VITALS (10 sets, daily range): BP systolic 127–163; BP diastolic 52–71
--- NOTE | 2017-11-18 06:45 | NUR ---
PT SLEPT THROUGHOUT THE SHIFT. PRESCRIBED MEDICATION GIVEN TO THE PT. PT SHOWS NO SIGNS OF DISTRESS. SAFETY AND COMFORT PROVIDED.
--- NOTE | 2017-11-18 07:30 | NUR ---
ON BED, RESTING WELL . AM CARE PROVIDED PENDING POSSIBLE DISCHARGE TODAY. DENIES DISTRESS.
[2017-11-18] MEDS: LACTOBACILLUS RHAMNOSUS GG 1 EACH CAPSULE PO SCH ×2 (08:44→21:21)
[2017-11-18] MEDS: LOSARTAN POTASSIUM 50 MG TABLET PO SCH ×2 (08:44→21:21)
[2017-11-18] MEDS: CARVEDILOL 3.125 MG TABLET PO SCH ×2 (08:44→17:35)
[2017-11-18] MEDS: NEOMY/BACITRAC/POLYMI OINT 28.35 GM TUBE TP SCH (08:45)
[2017-11-18] MEDS: LINAGLIPTIN 5 MG TABLET PO SCH (08:45)
[2017-11-18] MEDS: LIDOCAINE 5% PATCH TD SCH (08:45)
--- NOTE | 2017-11-18 09:53 | NUR ---
RESTING WELL. NO DISTRESS NOTED
--- NOTE | 2017-11-18 11:00 | NUR ---
DAUGHTER AT BEDSIDE, SUPPORTIVE OF PATIENT CARE. STILL AWAITING PLACEMENT FROM [place] [facility]. APPRECIATIVE OF CARE
[2017-11-18] MEDS ORDERED: MIRALAX 17 GM POWD.PACK PO PRN (13:00)
[2017-11-18] MEDS ORDERED: FUROSEMIDE 20 MG TABLET PO ONE (13:15)
[2017-11-18 13:41] LABS: CARBON DIOXIDE 25 mmol/L (21-32); CHLORIDE 106 mmol/L (98-107); CREATININE 0.8 mg/dL (0.6-1.3); GLUCOSE 215 mg/dL (74-106); MAGNESIUM 2.2 mg/dL (1.8-2.4); POTASSIUM 3.8 mmol/L (3.5-5.1); UREA NITROGEN, BLOOD 15 mg/dL (7-18)
[2017-11-18 13:48] LABS: EOSINOPHILS # (AUTO) 0.1 K/uL (0.0-0.7); MONOCYTES # (AUTO) 1.3 K/uL (2.0-10.0)
[2017-11-18 14:14] LABS: BASOPHILS % (AUTO) 0.2 % (0.0-2.0); EOSINOPHILS % (AUTO) 0.9 % (0.0-7.0); LYMPHOCYTES # (AUTO) 1.3 K/uL (20.0-40.0); MEAN CORPUSCULAR HEMOGLOBIN 30.4 uug (24.7-32.8); MEAN CORPUSCULAR HGB CONC 34 g/dL (32.3-35.6); MEAN CORPUSCULAR VOLUME 90.5 fL (75.5-95.3); MONOCYTES % (AUTO) 11.9 % (0.0-11.0); NEUTROPHILS # (AUTO) 8.4 K/uL (1.8-8.9); PLATELET COUNT (AUTO) 247 K/uL (179-408); WHITE BLOOD COUNT (AUTO) 11.2 K/uL (3.8-11.8)
--- NOTE | 2017-11-18 14:15 | NUR ---
DR EMERSON AWARE OF CRITICAL H/H /RBC RESULT WITH ORDER AND CARRIED OUT.
[2017-11-18 14:17] LABS: HEMOGLOBIN 7.3 g/dL (10.9-14.3)
[2017-11-18 14:19] LABS: HEMATOCRIT 21.7 % (31.2-41.9)
--- NOTE | 2017-11-18 15:00 | NUR ---
DAUGHTER LEFT FOR LUNCH, WILL CHECK FOR APPROVAL OF BLOOD TRANSFUSION WITH OWN MEDICAL MD.
--- NOTE | 2017-11-18 15:50 | NUR ---
SPOKE TO SCOTT FOR US ON LEFT FOREARM FOLLOW UP, WILL CALL TECH .
--- NOTE | 2017-11-18 16:28 | NUR ---
LEFT MESSAGE FOR DR EMERSON, BETTER PLACEMENT OF IV ON RIGHT HAND, HAD MASTECTOMY 40 YEARS AGO, AGREED WITH DAUGHTER , CHRISTIAN.
[2017-11-18] MEDS: risperiDONE 1 MG TABLET PO SCH (17:31)
[2017-11-18] MEDS: ESCITALOPRAM OXALATE 10 MG TABLET PO SCH (17:31)
[2017-11-18] MEDS: RIVAROXABAN 10 MG TABLET PO SCH (17:42)
--- NOTE | 2017-11-18 18:58 | NUR ---
TOLERATING BLOOD TRANSFUSION WELL. DAUGHTER AT BEDSIDE, SUPPORTIVE OF CARE.
[2017-11-18] MEDS ORDERED: Z GUARD REMEDY PASTE 57 GM TUBE TOP PRN (19:00)
--- NOTE | 2017-11-18 19:00 | NUR ---
RECEIVED PATIENT IN BED AWAKE VERBALLY RESPONSIVE, BLOOD TRANSFUSION TOLERATING WELL NO SO NO CHEST PAIN NO COUGHING NOTED, NO S/S OF PAIN AT THIS TIME. CONT 1;1 SITTER FOR SAFETY, CONT TO MONITOR.
--- NOTE | 2017-11-18 20:52 | NUR ---
BLOOD TRANSFUSION DONE, WITH NO ADVERSE REACTION NOTED, NO COUGHING NO CHEST PAIN NOTED, V/S WNL CONT TO MONITOR.
[2017-11-19 04:20] VITALS: BP 153/61
[2017-11-19 06:57] LABS: BASOPHILS # (AUTO) 0.1 K/uL (0.0-8.0); BASOPHILS % (AUTO) 0.7 % (0.0-2.0); CARBON DIOXIDE 23 mmol/L (21-32); CHLORIDE 109 mmol/L (98-107); CREATININE 0.9 mg/dL (0.6-1.3); EOSINOPHILS # (AUTO) 0.2 K/uL (0.0-0.7); EOSINOPHILS % (AUTO) 1.3 % (0.0-7.0); GLUCOSE 164 mg/dL (74-106); HEMATOCRIT 25.1 % (31.2-41.9); HEMOGLOBIN 8.6 g/dL (10.9-14.3); LYMPHOCYTES # (AUTO) 1.7 K/uL (20.0-40.0); LYMPHOCYTES % (AUTO) 14.4 % (20.5-51.5); MAGNESIUM 2.1 mg/dL (1.8-2.4); MEAN CORPUSCULAR HEMOGLOBIN 30.3 uug (24.7-32.8); MEAN CORPUSCULAR HGB CONC 34 g/dL (32.3-35.6); MEAN CORPUSCULAR VOLUME 88.7 fL (75.5-95.3); MONOCYTES # (AUTO) 1.6 K/uL (2.0-10.0); MONOCYTES % (AUTO) 13.7 % (0.0-11.0); NEUTROPHILS # (AUTO) 8.3 K/uL (1.8-8.9); NEUTROPHILS % (AUTO) 69.9 % (38.5-71.5); PHOSPHOROUS 2.9 mg/dL (2.5-4.9); PLATELET COUNT (AUTO) 254 K/uL (179-408); RED BLOOD CELL COUNT(AUTO) 2.83 MIL/uL (3.63-4.92); UREA NITROGEN, BLOOD 17 mg/dL (7-18); WHITE BLOOD COUNT (AUTO) 11.8 K/uL (3.8-11.8)
[2017-11-19] MEDS ORDERED: CARV3.122 PO (08:35)
[2017-11-19] MEDS ORDERED: LINA5TAB PO (08:35)
[2017-11-19] MEDS ORDERED: RIVA10TA PO (08:35)
[2017-11-19] MEDS ORDERED: ESCI10TA PO (08:35)
[2017-11-19] MEDS ORDERED: PANT40TA2 PO (08:40)
[2017-11-19] MEDS: LACTOBACILLUS RHAMNOSUS GG 1 EACH CAPSULE PO SCH (09:26)
[2017-11-19] MEDS: LIDOCAINE 5% PATCH TD SCH (09:28)
[2017-11-19] MEDS: NEOMY/BACITRAC/POLYMI OINT 28.35 GM TUBE TP SCH (09:28)
[2017-11-19] MEDS: LOSARTAN POTASSIUM 50 MG TABLET PO SCH (09:29)
[2017-11-19] MEDS: CARVEDILOL 3.125 MG TABLET PO SCH (09:29)
[2017-11-19] MEDS: LINAGLIPTIN 5 MG TABLET PO SCH (09:29)
[2017-11-19 11:36] VITALS: BP 131/62
--- NOTE | 2017-11-19 14:40 | NUR ---
Report given to Molly from SNF. Copy provided to daughter. Discharge instructions given to pt and daughter. Kept IV on left hand per daughters request. PT is in no acute distress upon discharge. Pt to f/u with PMD with her vaccinations.
== END 2017-11-19 14:40 | DRG 871 ==
LOC: ER 18:52 → CCU 11-11 01:37 → TELE 11-11 15:27 → MED 11-13 14:33 → TELE 11-14 08:00 → MED 11-16 12:50
PROVIDERS: ADMIT Internal Medicine; ATTEND Internal Medicine
PROC: 30233N1 Transfusion of Nonautologous Red Blood Cells into Peripheral Vein, Percutaneous Approach (ICD-10-PCS; principal; 2017-11-18)
DX: A41.89 Other specified sepsis (principal); J10.00 Influenza due to other identified influenza virus with unspecified type of pneumonia; I21.4 Non-ST elevation (NSTEMI) myocardial infarction; R65.21 Severe sepsis with septic shock; E87.2 Acidosis; G92 Toxic encephalopathy; E11.65 Type 2 diabetes mellitus with hyperglycemia; D69.6 Thrombocytopenia, unspecified; I48.0 Paroxysmal atrial fibrillation; D64.9 Anemia, unspecified; F01.50 Vascular dementia, unspecified severity, without behavioral disturbance, psychotic disturbance, mood disturbance, and anxiety; I35.1 Nonrheumatic aortic (valve) insufficiency; I69.312 Visuospatial deficit and spatial neglect following cerebral infarction; I69.314 Frontal lobe and executive function deficit following cerebral infarction; Z86.718 Personal history of other venous thrombosis and embolism; Z66 Do not resuscitate; E78.5 Hyperlipidemia, unspecified; F32.9 Major depressive disorder, single episode, unspecified; M48.02 Spinal stenosis, cervical region; Z79.84 Long term (current) use of oral hypoglycemic drugs; Z79.82 Long term (current) use of aspirin; Z79.899 Other long term (current) drug therapy; Z85.3 Personal history of malignant neoplasm of breast; Z90.11 Acquired absence of right breast and nipple; Z90.710 Acquired absence of both cervix and uterus; S00.12XD Contusion of left eyelid and periocular area, subsequent encounter; W19.XXXD Unspecified fall, subsequent encounter; K08.89 Other specified disorders of teeth and supporting structures; I10 Essential (primary) hypertension
CPT/HCPCS: 36415; 70030-TC; 70450; 71045; 72125; 83605; 83735; 84100; 85025; 85730; 86850; 86900; 86901; 86920; 87040; 87400; 93005; 93307; 93880; 97116; 97530; A4663; J0456; J1650; J2405; J2543; J3370; J3475; J3480; J3490; J7030; J7050; J7060; P9016-BL; P9021